=== PATIENT | male | born 1985 | race Asian ===

== ENCOUNTER 2018-03-11 09:14 | Emergency (ER) | payer MEDICAID ==
[~2018-03-11] VITALS: Ht 177.8 cm; Wt 94.3 kg
[2018-03-11 09:26] VITALS: BP 139/91; Ht 177.8 cm; Wt 94.3 kg
== END 2018-03-11 11:34 | disposition home or self-care (01) ==
LOC: ED 09:14
DX: S13.4XXA Sprain of ligaments of cervical spine, initial encounter (principal); S00.93XA Contusion of unspecified part of head, initial encounter; V43.62XA Car passenger injured in collision with other type car in traffic accident, initial encounter; Y93.89 Activity, other specified; Y92.488 Other paved roadways as the place of occurrence of the external cause; Y99.8 Other external cause status